=== PATIENT | male | born 1995 | race Caucasian/White ===

== ENCOUNTER 2025-11-04 09:42 | Emergency (ER) | payer BC ==
[~2025-11-04] VITALS: Ht 172.7 cm; Wt 99.8 kg
[2025-11-04 10:24] LABS: PLATELET COUNT (AUTO) 216 K/uL (150-450); RED BLOOD CELL COUNT(AUTO) 5.55 MIL/uL (4.5-6.0); RED CELL DISTRIBUTION WIDTH 14.9 % (11.5-15.0); WHITE BLOOD COUNT (AUTO) 8.3 K/uL (4.3-11.0)
[2025-11-04 10:40] LABS: CALCIUM, SERUM 8.1 mg/dL (8.5-10.1); CREATININE 0.9 mg/dL (0.6-1.3); SODIUM SERUM 137.0 mmol/L (136-145); UREA NITROGEN, BLOOD 11.0 mg/dL (7-18)
[2025-11-04] MEDS ORDERED: ACETAMINOPHEN ES 500 MG TABLET ONE (12:13)
[2025-11-04] MEDS: ACETAMINOPHEN ES 500 MG TABLET PO ONE (12:15)
[2025-11-04 14:12] VITALS: BP 131/59; TEMP 98.4; O2SAT 99
== END 2025-11-04 14:13 | disposition home or self-care (01) ==
LOC: ER 09:47
DX: R07.9 Chest pain, unspecified (principal); R19.7 Diarrhea, unspecified
CPT/HCPCS: 36415; 71045-TC; 80048-TC; 84484-TC; 85025-TC